=== PATIENT | male | born 1990 | race African-American/Black ===

== ENCOUNTER 2017-07-09 01:57 | Emergency (ER) | payer OTHER | END 2017-07-09 04:29 | disposition home or self-care (01) | LOC: M ED 01:57 | DX: K08.89 Other specified disorders of teeth and supporting structures (principal); F17.200 Nicotine dependence, unspecified, uncomplicated | CPT/HCPCS: 64400 ==

== ENCOUNTER 2017-12-16 06:15 | Emergency (ER) | payer SELFPAY, OTHER | END 2017-12-16 08:33 | disposition home or self-care (01) | LOC: M ED 06:15 | DX: K08.89 Other specified disorders of teeth and supporting structures (principal); Z72.0 Tobacco use | CPT/HCPCS: 99283 ==

== ENCOUNTER 2017-12-16 20:30 | Emergency (ER) | payer SELFPAY, OTHER ==
[2017-12-16] MEDS: BUPIVACAINE HCL 0.5% 10 ML VIAL SC (23:45)
== END 2017-12-17 00:12 | disposition home or self-care (01) ==
LOC: M ED 12-17 00:12
DX: K08.89 Other specified disorders of teeth and supporting structures (principal); Z72.0 Tobacco use
CPT/HCPCS: 64400

== ENCOUNTER 2018-06-11 10:45 | Emergency (ER) | payer SELFPAY ==
[~2018-06-11] VITALS: Ht 188 cm; Wt 92.7 kg
[~2018-06-11 10:45] MED LIST: AMOX500C PO; CLEO150C PO; HYDR-3715 PO; PERI0.126 SSP
[2018-06-11 10:46] VITALS: BP 135/92
[2018-06-11] MEDS ORDERED: KEFL500C17 PO (11:08)
== END 2018-06-11 11:21 | disposition home or self-care (01) ==
LOC: M ED 10:45
DX: R25.1 Tremor, unspecified (principal); L73.9 Follicular disorder, unspecified; F17.210 Nicotine dependence, cigarettes, uncomplicated

== ENCOUNTER 2018-11-04 13:59 | Emergency (ER) | payer OTHER, SELFPAY ==
[~2018-11-04] VITALS: Ht 188 cm; Wt 95.5 kg
[~2018-11-04 13:59] MED LIST changes: +KEFL500C17 PO
[2018-11-04 15:27] VITALS: BP 138/82
[2018-11-04] MEDS ORDERED: KEFL500C17 PO (15:39)
[2018-11-04] MEDS ORDERED: ADACEL/BOOSTRIX VACCINE (DIPHTH/PERTUSS/ACELL/TETANUS)0.5ML SYR (90715) IM ONE (15:45)
[2018-11-04] MEDS ORDERED: CEPHALEXIN 500 MG CAP PO ONE (15:45)
[2018-11-04] MEDS ORDERED: IBUPROFEN 600 MG TAB PO ONE (15:45)
== END 2018-11-04 16:25 | disposition home or self-care (01) ==
LOC: M ED 13:59
DX: S61.412A Laceration without foreign body of left hand, initial encounter (principal); Y28.8XXA Contact with other sharp object, undetermined intent, initial encounter; Y92.511 Restaurant or cafe as the place of occurrence of the external cause; Y93.E5 Activity, floor mopping and cleaning; Y99.0 Civilian activity done for income or pay; Z72.0 Tobacco use

== ENCOUNTER 2023-05-08 18:24 | Emergency (ER) | payer BC, OTHER, SELFPAY ==
[~2023-05-08] VITALS: Ht 188 cm; Wt 103.6 kg
[2023-05-08 19:45] LABS: BASO % 0.4 % (0.0-1.0); EOS # 0.1 10^3/uL (0.0-0.5); EOS % 1.2 % (0.0-3.0); HEMATOCRIT 45.2 % (42.0-52.0); HEMOGLOBIN 15.6 g/dl (13.5-17.5); LYMPH # 2.7 10^3/uL (1.5-5.0); LYMPH % 27.1 % (24.0-44.0); MEAN CORPUSCULAR HEMOGLOBIN 29.3 pg (27.0-33.0); MEAN CORPUSCULAR HGB CONC 34.5 g/dl (32.0-36.5); MEAN CORPUSCULAR VOLUME 84.8 fl (80.0-96.0); MONO # 0.8 10^3/uL (0.0-0.8); MONO % 8.2 % (2.0-8.0); NEUTROPHILS # 6.2 10^3/uL (1.5-8.5); NEUTROPHILS % 62.9 % (36.0-66.0); PLATELET COUNT, AUTOMATED 287 10^3/uL (150-450); RED BLOOD COUNT 5.33 10^6/uL (4.30-6.10); WHITE BLOOD COUNT 9.9 10^3/uL (4.0-10.0)
[2023-05-08 20:08] LABS: ERYTHROCYTE SEDIMENTATION RATE 41 mm/hr (0-15)
[2023-05-08 20:12] LABS: BLOOD UREA NITROGEN 9 MG/DL (9-23); CALCIUM LEVEL 8.6 MG/DL (8.5-10.1); CARBON DIOXIDE LEVEL 28 MMOL/L (20-31); CHLORIDE LEVEL 106 MMOL/L (98-107); CREATININE FOR GFR 0.94 MG/DL (0.70-1.30); GLOMERULAR FILTRATION RATE > 60.0 (>60); GLUCOSE, FASTING 93 MG/DL (60-100); POTASSIUM SERUM 4.1 MMOL/L (3.5-5.1); SODIUM LEVEL 137 MMOL/L (136-145)
[2023-05-08] MEDS: DOXYCYCLINE HYCLATE 100MG TABLET PO ONE (22:27)
[2023-05-08 22:30] VITALS: BP 124/88; TEMP 98.8; O2SAT 98
[2023-05-08] MEDS ORDERED: DOXY-443 PO (22:35)
== END 2023-05-08 22:44 | disposition home or self-care (01) ==
LOC: M ED 18:24
DX: L66.2 Folliculitis decalvans (principal); I10 Essential (primary) hypertension; F17.200 Nicotine dependence, unspecified, uncomplicated; F12.10 Cannabis abuse, uncomplicated; Z79.2 Long term (current) use of antibiotics

== ENCOUNTER 2023-12-26 20:10 | Emergency (ER) | payer OTHER, SELFPAY ==
[~2023-12-26] VITALS: Ht 188 cm; Wt 102.6 kg
[~2023-12-26 20:10] MED LIST changes: +DOXY-441 PO; +SULF1TAB23 PO
[2023-12-26 20:14] VITALS: TEMP 97.4
[2023-12-26 21:43] VITALS: BP 144/90; O2SAT 99
== END 2023-12-26 21:45 | disposition home or self-care (01) ==
LOC: M ED 20:10
DX: S91.031A Puncture wound without foreign body, right ankle, initial encounter (principal); W54.0XXA Bitten by dog, initial encounter; Z79.2 Long term (current) use of antibiotics; Y92.9 Unspecified place or not applicable; Y93.89 Activity, other specified; Y99.9 Unspecified external cause status

== ENCOUNTER 2025-01-02 07:28 | Emergency (ER) | payer MEDICAID, SELFPAY ==
[~2025-01-02] VITALS: Ht 188 cm; Wt 109.0 kg
[2025-01-02] MEDS ORDERED: ACET-683 PO (07:38)
[2025-01-02] MEDS ORDERED: SFHIBU600 PO (07:38)
[2025-01-02 08:48] LABS: BASO # 0.0 10^3/uL (0.0-0.2); BASO % 0.4 % (0.0-1.0); EOS # 0.1 10^3/uL (0.0-0.5); EOS % 0.6 % (0.0-3.0); LYMPH # 1.9 10^3/uL (1.5-5.0); LYMPH % 25.0 % (24.0-44.0); MONO # 0.6 10^3/uL (0.0-0.8); MONO % 8.3 % (2.0-8.0); NEUTROPHILS # 5.1 10^3/uL (1.5-8.5); NEUTROPHILS % 65.4 % (36.0-66.0); PLATELET COUNT, AUTOMATED 210 10^3/uL (150-450)
[2025-01-02] MEDS ORDERED: ISOVUE-370 76% 100 ML VIAL As Ordered ONE (09:00)
[2025-01-02 09:12] LABS: C REACTIVE PROTEIN QUANTITATIV 1.51 MG/DL (<1.0)
[2025-01-02 09:13] LABS: ALT/SGPT 29 U/L (7.0-40); AST/SGOT 32 U/L (<34); CALCIUM LEVEL 9.0 MG/DL (8.5-10.1); CARBON DIOXIDE LEVEL 25 MMOL/L (20-31); CHLORIDE LEVEL 104 MMOL/L (98-107); CREATININE FOR GFR 0.99 MG/DL (0.70-1.30); GLOMERULAR FILTRATION RATE > 90.0 (>60); POTASSIUM SERUM 4.4 MMOL/L (3.5-5.1); SODIUM LEVEL 138 MMOL/L (136-145)
[2025-01-02] MEDS: ONDANSETRON 4MG/2ML VIAL IV ONE (09:20)
[2025-01-02] MEDS: AMPICILLIN SOD/SULBACTAM SOD 3 GM in DEXTROSE 5% (D5W) MINI-BAG PLU 100 ML IV ONE ×2 (09:44→15:53)
[2025-01-02] MEDS: KETOROLAC 30 MG/ML 1 ML VIAL IV ONE (09:45)
[2025-01-02] MEDS ORDERED: HOME MED LIST COMPLETE! XX SCH (10:40)
[2025-01-02] MEDS ORDERED: AMOX875T2 PO (15:06)
[2025-01-02 16:34] VITALS: BP 134/90; TEMP 97.5; O2SAT 98
== END 2025-01-02 16:44 | disposition home or self-care (01) ==
LOC: M ED 07:28
DX: K04.7 Periapical abscess without sinus (principal); Z79.1 Long term (current) use of non-steroidal anti-inflammatories (NSAID); Z79.2 Long term (current) use of antibiotics
CPT/HCPCS: 36415; 70491; 80047; 80053; 83605; 85025; 85652; 86140; 87040; 96365; 96366; 96375; 99284; J0295; J1100; J1885; J2405; Q9967